=== PATIENT | female | born 1985 | race African-American/Black ===

== ENCOUNTER 2021-07-19 14:12 | Inpatient (IN) | payer BC ==
[2021-07-19] MEDS ORDERED: DEXTROSE 5%-WATER - 1,000 ML IV SCH (17:00)
[2021-07-19 17:02] LABS: BASO % 0.2 % (0-2.0); EOS % 1.6 % (0-4.5); HEMATOCRIT 30.4 % (32.4-45.2); HEMOGLOBIN 10.6 GM/dL (10.7-15.3); LYMPH % 18.6 % (8-40); MCH 33.1 pg (25.7-33.7); MCHC 34.7 g/dl (32.0-36.0); MEAN CELL VOLUME 95.5 fl (80-96); MEAN PLT VOLUME 10.4 fl (7.5-11.1); MONO % 9.4 % (3.8-10.2); NEUT % 70.2 % (42.8-82.8); PLATELET COUNT 136 10^3/uL (134-434); RBC 3.19 M/mm3 (3.60-5.2); RDW 13.2 % (11.6-15.6); WHITE BLOOD COUNT 4.3 K/mm3 (4.0-10.0)
[2021-07-19 17:09] LABS: INR 0.89 (0.83-1.09)
[2021-07-19 17:12] LABS: ACTIVATED PTT 26.7 SECONDS (25.2-36.5)
[2021-07-19 17:14] LABS: CALCIUM 8.4 mg/dL (8.5-10.1)
[2021-07-19 18:36] VITALS: BMI 27.9
[2021-07-19] MEDS ORDERED: CITRIC ACID/SODIUM CITRATE 30 ML UNIT-DOSE CUP PO ONE (20:00)
[2021-07-19] MEDS ORDERED: ELECTROLYTE-148 SOLN 1,000 ML IV SCH (20:30)
[2021-07-19] MEDS ORDERED: ceFAZolin SODIUM 1 GM VIAL ONE (20:36)
[2021-07-19] MEDS ORDERED: ONDANSETRON 4 MG/2 ML VIAL ONE (20:55)
[2021-07-19] MEDS ORDERED: OXYTOCIN 10 UNITS/ML VIAL ONE ×2 (21:09→21:48)
[2021-07-19] MEDS: OXYTOCIN 20 UNITS in 0.9% NS 20 UNIT/1,000 ML INFUS.BAG IV SCH (22:00)
[2021-07-19 22:01] LABS: CORD BASE EXCESS -2.7 mmol/L (0-2); CORD HCO3 22.9 mmHg (20-29); CORD PCO2 42.6 mmHg (30-78); CORD pH 7.349 (7.14-7.44)
[2021-07-19] MEDS ORDERED: METHYLERGONOVINE MALEATE 0.2 MG/1 ML AMP IM PRN (22:01)
[2021-07-19] MEDS ORDERED: BENZOCAINE 20% 57 GM BOTTLE TP PRN (22:01)
[2021-07-19] MEDS ORDERED: BENZOCAINE 28 GM HEMORRHOIDAL OINTMENT TP PRN (22:01)
[2021-07-19] MEDS ORDERED: WITCH HAZEL 50% (TUCKS) 40 PAD/JAR PAD TP PRN (22:01)
[2021-07-19 22:06] LABS: CORD HCO3 25.4 mmHg (20-29); CORD PCO2 61.8 mmHg (30-78); CORD pH 7.231 (7.14-7.44)
[2021-07-19 22:11] LABS: CORD BASE EXCESS -3.7 mmol/L (0-2); CORD HCO3 22.3 mmHg (20-29); CORD PCO2 43.4 mmHg (30-78); CORD pH 7.328 (7.14-7.44)
[2021-07-19 22:14] LABS: CORD BASE EXCESS -4.1 mmol/L (0-2); CORD HCO3 21.6 mmHg (20-29); CORD PCO2 41.8 mmHg (30-78); CORD pH 7.332 (7.14-7.44)
[2021-07-19] MEDS ORDERED: ONDANSETRON 4 MG/2 ML VIAL IVPUSH PRN (22:28)
[2021-07-19] MEDS ORDERED: IBUPROFEN 800 MG/8 ML IJ IVPB ONE (23:32)
[2021-07-19] MEDS ORDERED: OXYTOCIN 20 UNITS in 0.9% NS 20 UNIT/1,000 ML INFUS.BAG IV ONE (23:35)
[2021-07-19] MEDS: IBUPROFEN 800 MG/8 ML IJ IVPB PRN (23:49)
[2021-07-20 08:29] LABS: BASO % 0.2 % (0-2.0); EOS % 0.9 % (0-4.5); HEMATOCRIT 29.4 % (32.4-45.2); HEMOGLOBIN 10.4 GM/dL (10.7-15.3); LYMPH % 13.3 % (8-40); MCH 34.2 pg (25.7-33.7); MCHC 35.4 g/dl (32.0-36.0); MEAN CELL VOLUME 96.5 fl (80-96); MEAN PLT VOLUME 10.8 fl (7.5-11.1); MONO % 8.5 % (3.8-10.2); NEUT % 77.1 % (42.8-82.8); PLATELET COUNT 128 10^3/uL (134-434); RBC 3.05 M/mm3 (3.60-5.2); RDW 12.8 % (11.6-15.6); WHITE BLOOD COUNT 5.7 K/mm3 (4.0-10.0)
[2021-07-20] MEDS: PRENATAL VITAMINS W/ FOLIC ACID TABLET (FP) PO SCH (09:26)
[2021-07-20] MEDS ORDERED: oxyCODONE HCL 5 MG TABLET PO PRN (10:01)
[2021-07-20] MEDS: OXYTOCIN 20 UNITS in 0.9% NS 20 UNIT/1,000 ML INFUS.BAG IV SCH (10:30)
[2021-07-20] MEDS: IBUPROFEN 800 MG/8 ML IJ IVPB PRN ×2 (10:34→17:35)
[2021-07-20] MEDS ORDERED: BISACODYL 10 MG SUPP.RECT RC PRN (22:01)
[2021-07-20] MEDS: ACETAMINOPHEN 325 MG TABLET (FP) PO PRN (22:12)
[2021-07-21] MEDS: oxyCODONE HCL 5 MG TABLET PO PRN ×3 (01:18→23:41)
[2021-07-21] MEDS: ACETAMINOPHEN 325 MG TABLET (FP) PO PRN ×3 (02:16→15:07)
[2021-07-21] MEDS: SIMETHICONE 80 MG TAB.CHEW (FP) PO PRN ×3 (06:07→20:34)
[2021-07-21] MEDS: PRENATAL VITAMINS W/ FOLIC ACID TABLET (FP) PO SCH (09:47)
[2021-07-21] MEDS: IBUPROFEN 600 MG TABLET (FP) PO PRN ×2 (12:21→20:34)
[2021-07-22] MEDS: IBUPROFEN 600 MG TABLET (FP) PO PRN ×3 (05:57→20:54)
[2021-07-22 07:09] LABS: BASO % 0.2 % (0-2.0); EOS % 2.3 % (0-4.5); HEMATOCRIT 25.5 % (32.4-45.2); HEMOGLOBIN 8.8 GM/dL (10.7-15.3); LYMPH % 15.9 % (8-40); MCH 33.3 pg (25.7-33.7); MCHC 34.6 g/dl (32.0-36.0); MEAN CELL VOLUME 96.2 fl (80-96); MEAN PLT VOLUME 10.1 fl (7.5-11.1); MONO % 9.7 % (3.8-10.2); NEUT % 71.9 % (42.8-82.8); PLATELET COUNT 124 10^3/uL (134-434); RBC 2.65 M/mm3 (3.60-5.2); RDW 13.1 % (11.6-15.6); WHITE BLOOD COUNT 5.9 K/mm3 (4.0-10.0)
[2021-07-22] MEDS: PRENATAL VITAMINS W/ FOLIC ACID TABLET (FP) PO SCH (09:26)
[2021-07-23 09:01] VITALS: BP 115/74; PULSE 66; TEMP 98.3
[2021-07-23] MEDS: IBUPROFEN 600 MG TABLET (FP) PO PRN (09:59)
[2021-07-23] MEDS: SIMETHICONE 80 MG TAB.CHEW (FP) PO PRN (09:59)
[2021-07-23] MEDS: PRENATAL VITAMINS W/ FOLIC ACID TABLET (FP) PO SCH (09:59)
== END 2021-07-23 13:50 | disposition home or self-care (01) | DRG 787 ==
LOC: JDEL 14:12 → JLDR 15:21 → J3W 23:45
PROVIDERS: ADMIT Obstetrics & Gynecology; ATTEND Obstetrics & Gynecology
PROC: 10D00Z1 Extraction of Products of Conception, Low, Open Approach (ICD-10-PCS; principal; 2021-07-19)
DX: O30.043 Twin pregnancy, dichorionic/diamniotic, third trimester (principal); O99.12 Other diseases of the blood and blood-forming organs and certain disorders involving the immune mechanism complicating childbirth; D69.6 Thrombocytopenia, unspecified; O99.013 Anemia complicating pregnancy, third trimester; O99.213 Obesity complicating pregnancy, third trimester; O32.2XX2 Maternal care for transverse and oblique lie, fetus 2; O34.13 Maternal care for benign tumor of corpus uteri, third trimester; D25.9 Leiomyoma of uterus, unspecified; Z3A.37 37 weeks gestation of pregnancy; Z37.2 Twins, both liveborn
CPT/HCPCS: 36415; 36600; 80048; 82803; 85025; 85610; 85730; 86780; 86850; 86900; 86901; 86922; 88307-TC; C9803; U0003; U0005